=== PATIENT | male | born 1950 | race Caucasian/White ===

== ENCOUNTER → 2024-10-03 | Outpatient (CLI) | payer MEDICARE, OTHER, SELFPAY ==
--- NOTE | 2024-10-03 14:11 | ECHOD_ITS ---
Reason For Study Reason For Study: PHTN Procedure This was a 2D Doppler, Color Flow transthoracic echocardiogram. Exam performed in department. Left Ventricle Normal LV size. Mild concentric left ventricular hypertrophy. The LV ejection fraction is 65 %. Stage 1 diastolic dysfunction. Right Ventricle Normal right ventricle. Atria There is mild biatrial dilatation. Mitral Valve Mild mitral annular calcification. Mild (1+) mitral valve insufficiency. Tricuspid Valve Mild tricuspid valve insufficiency. Right ventricular systolic pressure estimated to be 65 mmHg. Aortic Valve Aortic sclerosis, no stenosis. Trivial aortic valve insufficiency. Pulmonic Valve The pulmonic valve is not well visualized. Great Vessels Mildly dilated aortic root. Pericardium/Pleural No pericardial effusion. MMode/2D Measurements & Calculations LVIDd: 5.5 cm IVSd: 1.2 cm Ao root diam: 3.9 cm LVIDs: 3.3 cm LVPWd: 1.2 cm LA dimension: 4.3 cm RVDd: 4.8 cm FS: 40.3 % LAV(MOD-bp): 46.8 ml LVAd ap4: 32.2 cm2 SV(MOD-sp4): 50.0 ml LAV(MOD-bp) Indexed: 20.5 ml/m2 LVLd ap4: 9.2 cm SI(MOD-sp4): 21.9 ml/m2 LAV(MOD-sp2): 55.1 ml EDV(MOD-sp4): 93.6 ml LAV(MOD-sp4): 37.5 ml EDV(sp4-el): 95.8 ml LVAs ap4: 19.4 cm2 LVLs ap4: 7.9 cm ESV(MOD-sp4): 43.6 ml ESV(sp4-el): 40.8 ml EF(MOD-sp4): 53.4 % EF(sp4-el): 57.4 % SV(sp4-el): 55.0 ml LA A4 area: 16.1 cm2 LA dimension(2D): 4.3 cm RA A4 area: 17.1 cm2 TAPSE: 2.8 cm Time Measurements MV dec time: 0.28 sec Doppler Measurements & Calculations MV E max ezequiel: 90.7 cm/sec Lat Peak E' Ezequiel: 8.6 cm/sec Med Peak E' Ezequiel: 7.7 cm/sec MV A max ezequiel: 83.5 cm/sec E/E' lat: 10.5 E/E' med: 11.7 MV E/A: 1.1 MV V2 max: 109.9 cm/sec Ao V2 max: 154.6 cm/sec MV max P.8 mmHg MV dec slope: 326.9 cm/sec2 Ao max P.6 mmHg MV V2 mean: 83.1 cm/sec Ao V2 mean: 102.3 cm/sec MV mean P.9 mmHg Ao mean P.9 mmHg MV V2 VTI: 37.4 cm Ao V2 VTI: 32.9 cm AV (velocity ratio): 0.89 LV V1 max: 129.1 cm/sec PA V2 max: 114.6 cm/sec TR max ezequiel: 354.9 cm/sec LV V1 max P.7 mmHg PA V2 mean: 73.4 cm/sec TR max P.4 mmHg LV V1 mean P.8 mmHg LV V1 mean: 107.0 cm/sec LV V1 VTI: 29.4 cm ECHO/Echo Complete Interpretation Summary Mild concentric left ventricular hypertrophy. The LV ejection fraction is 65 %. Stage 1 diastolic dysfunction. There is mild biatrial dilatation. Mild mitral annular calcification. Mild (1+) mitral valve insufficiency. Mild tricuspid valve insufficiency. RVSP estimated at 65 mmHg. Aortic sclerosis, no stenosis. Mildly dilated aortic root. Ordering Physician: Will Johnson V Referring Physician: Will Johnson V Performed By: Nimco Maynard and Student
== END | disposition home or self-care (01) ==
LOC: CVS 14:10
PROVIDERS: PCP Family Medicine; Referring Provider Internal Medicine Pulmonary Disease; Visit Provider Internal Medicine Pulmonary Disease
DX: I27.20 Pulmonary hypertension, unspecified (principal)
CPT/HCPCS: 93306